=== PATIENT | female | born 1955 ===

== ENCOUNTER → 2018-06-18 | Outpatient (CLI) | payer BC, OTHER ==
[~2018-06-18] MED LIST: ALBU8.5H IH; ATOR40TA24 PO; BLOO-1037; FLUO-177 PO; FLUT16SP19 NS; L.AC1CAP6; LEVO25TA57 PO; METO100T20 PO; MULT1CAP59 PO; OLME40TA3; OMEG-96 PO; OMEP-125 PO; SPIR25TA80 PO
== END ==
LOC: LAB 10:29
PROVIDERS: ATTEND Otolaryngology
DX: R22.1 Localized swelling, mass and lump, neck (principal)
CPT/HCPCS: 36415; 82565